=== PATIENT | female | born 1990 | race African-American/Black ===

== ENCOUNTER 2018-06-08 12:25 | Emergency (ER) | payer OTHER, SELFPAY ==
[2018-06-08 13:09] LABS: #Basophils 0.1 thou/uL (0.0-0.2); #Eosinphils 0.1 thou/uL (0.0-0.7); #Lymphocytes 2.3 thou/uL (1.20-3.40); #Monocytes 0.6 thou/uL (0.11-0.59); #Neutrophils 5.5 thou/uL (1.40-6.50); %Basophils 0.6 % (0.0-1.0); %Eosinophils 1.2 % (0.0-10.0); %Lymphocytes 27.2 % (21.0-51.0); %Monocytes 6.6 % (0.0-10.0); %Neutrophils 64.4 % (42.0-75.0); Hemoglobin 12.5 g/dL (12.0-16.0); Mean Corpuscular HGB CONC 34.7 g/dL (32.0-36.0); Mean Corpuscular Volume 77.9 fL (78.0-98.0); Mean Platelet Volume 8.8 fL (7.4-10.4); Platelet Count 219 thou/uL (130-400); RBC Distribution Width 11.7 % (11.5-14.5); Red Blood Cell (RBC) Count 4.64 mill/uL (4.20-5.40); White Blood Cell (WBC) Count 8.6 thou/uL (4.8-10.8)
[2018-06-08 14:57] LABS: Bilirubin Negative (Negative); Blood, Urine Negative (Negative); Clarity CLOUDY (Clear); Glucose, Urine (Dipstick) Negative (Negative); Leukocyte Small (Negative); Nitrite Negative (Negative); Protein, Urine (Dipstick) Negative (Neg-Trace); Specific Gravity, Urine 1.016 (1.002-1.036); Urobilinogen 0.2 mg/dL (0.2-1.0)
[2018-06-08 14:59] LABS: Bacteria/HPF Rare-Few HPF (None Seen); Hyaline Casts/LPF 4-6 HYALINE CAST LPF (0-3 Hyaline); Pathc Cast-AUWi Flag 1.74 (0-2.49)
[2018-06-08 15:14] LABS: RBC/HPF 0-3 HPF (0-3)
--- NOTE | 2018-06-08 16:06 | ULT ---
PELVIC/OB ULTRASOUND 06/08/18 COMPARISON: None. HISTORY: female with abdominal pain/cramping. TECHNIQUE: Multiplanar iverson scale and color doppler images were obtained in a transabdominal pelvic ultrasound. Spectral analysis of the doppler waveforms of the ovaries were performed. FINDINGS: There is a live intrauterine with a heart rate of 152 beats per minute. Average age of this fetus is 13 weeks, 4 days. The following measurements were taken and dates based on these measuremen ts are as follows: BPD 2.18 cm 13 weeks, 4 days HC 8.50 cm 13 weeks, 5 days AC 6.77 cm 13 weeks, 3 days FL 1.12 cm 13 weeks, 2 days The placenta is anterior in location without evidence of placenta previa. Amniotic fluid volume is august bjectively within normal limits. IMPRESSION: Single live intrauterine with estimated age of 13 weeks, 4 days. POS: [facility]
[2018-06-08 16:12] LABS: ALT (SGPT) 9 U/L (8-55); AST (SGOT) 15 U/L (5-34); Albumin 3.8 g/dL (3.5-5.0); Alkaline Phosphatase 69 U/L (40-150); Anion Gap 12 mmol/L (10-20); BUN (Urea Nitrogen) Less than 4 mg/dL (7.0-18.7); Bilirubin, Total 0.4 mg/dL (0.2-1.2); Calc. Creatinine Clearance 0 mL/min (70-130); Calcium 9.5 mg/dL (7.8-10.44); Carbon Dioxide 22 mmol/L (22-29); Chloride 105 mmol/L (98-107); Estimated GFR-MDRD Greater than 90; Globulin 3.1 g/dL (2.4-3.5); Glucose 72 mg/dL (70-105); Potassium 4.2 mmol/L (3.5-5.1); Protein, Total 6.9 g/dL (6.0-8.3); Sodium 135 mmol/L (136-145)
[2018-06-08 18:36] LABS: Bilirubin Negative (Negative); Blood, Urine Negative (Negative); Clarity CLEAR (Clear); Glucose, Urine (Dipstick) Negative (Negative); Leukocyte Trace (Negative); Nitrite Negative (Negative); Protein, Urine (Dipstick) Negative (Neg-Trace); Specific Gravity, Urine 1.004 (1.002-1.036); Urobilinogen 0.2 mg/dL (0.2-1.0)
[2018-06-08 18:38] LABS: Bacteria/HPF None Seen HPF (None Seen); Hyaline Casts/LPF 0-3 HYALINE CAST LPF (0-3 Hyaline); RBC/HPF None Seen HPF (0-3); Squamous Epithelial 0-3 HPF (0-3); WBC/HPF 0-3 HPF (0-3)
== END 2018-06-08 19:25 | disposition home or self-care (01) ==
LOC: ERS 12:25
DX: O99.89 Other specified diseases and conditions complicating pregnancy, childbirth and the puerperium (principal); R10.30 Lower abdominal pain, unspecified; Z3A.13 13 weeks gestation of pregnancy
CPT/HCPCS: 36415; 76815; 80053; 81003; 81015; 84702; 85025

== ENCOUNTER 2018-08-09 07:30 | Outpatient (CLI) | payer OTHER ==
--- NOTE | 2018-08-09 11:29 | ULT ---
COMPLETE OB ULTRASOUND GREATER THAN 14 WEEKS: HISTORY: A 28-year-old female with history of second trimester anatomy evaluation. FINDINGS: A single viable intrauterine fetus, noted in cephalic presentation. Placenta is anterior and fundal. heart rate 142 BPM. Amniotic fluid is within normal limits. Cervical length approximately 3 .2 cm. The visualized brain, four-chamber heart, three-vessel cord, stomach, bladder, kidneys, spine, and extremity regions appear unremarkable. BIOMETRY: BPD: 5.2 cm (21 weeks 6 days) HEAD CIRCUMFERENCE: 20.1 cm (22 weeks 2 days) ABDOMINAL CIRCUMFERENCE: 16.8 cm (21 weeks 6 days) FEMUR LENGTH: 3.8 cm (22 weeks 1 day) IMPRESSION: 1. Gestational age average 22 weeks 1 day. 2. Estimated date of delivery 12/12/2018. 3. Estimated weight 460 g. POS: [facility]
== END 2018-08-09 07:31 | disposition home or self-care (01) ==
LOC: BICULT 07:30 → EDSTATUS 08:00
PROVIDERS: ATTEND Family Medicine
DX: Z34.82 Encounter for supervision of other normal pregnancy, second trimester (principal); Z3A.22 22 weeks gestation of pregnancy
CPT/HCPCS: 76805

== ENCOUNTER 2018-11-04 23:56 | Day surgery (SDC) | payer OTHER ==
[2018-11-05 00:57] VITALS: BP 115/59; TEMP 98.9; BMI 26.7
--- NOTE | 2018-11-05 01:46 | PRG ---
DATE OF SERVICE: 11/05/2018 CHIEF COMPLAINT: Contractions. HISTORY OF PRESENT ILLNESS: Ms. Alonzo is a 28-year-old, G2, P1-0-0-1 with a history of a previous term vaginal delivery, who presents for contractions that started earlier this evening at home. She reports that she was having regular painful contractions for about 45 minutes and occurred approximately every 5-7 minutes. The patient denies any loss of fluid, any vaginal bleeding. Reports good movement. Denies any complications in her care and denies any other concerns with her . PAST MEDICAL HISTORY: Negative. PAST SURGICAL HISTORY: Negative. SOCIAL HISTORY: Negative. PREVIOUS OBSTETRICAL HISTORY: Prior term vaginal delivery. REVIEW OF SYSTEMS: Negative except as stated in HPI. PHYSICAL EXAMINATION: VITAL SIGNS: Blood pressure 115/59, heart rate 86, respirations 20, temperature 98.9. heart tones in the 130s with moderate variability, positive accelerations and no decelerations present. Tocometer with uterine irritability noted. No regular contractions noted. VAGINAL: Per RN, the cervix is 1 cm, 50% effaced, -2, and posterior. GENERAL: No acute distress. Alert and oriented, resting comfortably. CHEST: Nonlabored breathing. ABDOMEN: Soft, nontender. Uterus palpates soft. Active movement noted. No abdominal tenderness. No rebound. No guarding. SKIN: No rashes or lesions. MUSCULOSKELETAL: Normal range of motion in the upper and lower extremities. No clubbing, cyanosis, or edema noted. PSYCHIATRIC: Appropriate affect. The patient is alert and cooperative. ASSESSMENT AND PLAN: Ms. Alonzo is a 28-year-old, G2, P1-0-0-1 at 34 weeks and 4 days with uterine contractions that she notes prior to presentation, that she now reports have stopped. We discussed observation at the hospital versus at home with close monitoring. The patient agrees to discharge from the OB emergency department this evening with close monitoring at home. We discussed close observation for any return of regular painful contractions, bleeding, leakage of fluid or changes in movement or any other concerning findings. The patient's questions were answered and she was discharged home in good condition. Job ID: [id number]
== END 2018-11-05 01:13 | disposition home or self-care (01) ==
LOC: L&D/OP 23:56
PROVIDERS: ATTEND Family Medicine
DX: O47.03 False labor before 37 completed weeks of gestation, third trimester (principal); Z3A.34 34 weeks gestation of pregnancy
CPT/HCPCS: 99282

== ENCOUNTER 2018-11-15 10:56 | Emergency (ER) | payer OTHER | END 2018-11-15 12:10 | disposition home or self-care (01) | LOC: ERS 10:56 | DX: O9A.213 Injury, poisoning and certain other consequences of external causes complicating pregnancy, third trimester (principal); S16.1XXA Strain of muscle, fascia and tendon at neck level, initial encounter; Z3A.36 36 weeks gestation of pregnancy; V43.62XA Car passenger injured in collision with other type car in traffic accident, initial encounter | CPT/HCPCS: 99283 ==

== ENCOUNTER 2018-12-04 15:35 | Inpatient (IN) | payer OTHER ==
[2018-12-04 22:16] VITALS: BMI 28.6
[2018-12-04] MEDS ORDERED: Ibuprofen 800 MG TAB PO PRN (22:50)
[2018-12-04] MEDS ORDERED: Ondansetron PF 4 MG/2 ML Vial IVP PRN (22:50)
[2018-12-04] MEDS ORDERED: HYDROcodone/Acetaminophen 5/325 mg Tablet PO PRN (22:50)
[2018-12-04] MEDS ORDERED: Misoprostol 200 MCG TAB PR PRN (22:50)
[2018-12-04] MEDS ORDERED: Lidocaine 1% (PF) 30 ML VIAL SC PRN (22:50)
[2018-12-04] MEDS ORDERED: Carboprost 250 MCG/ML AMP IM PRN (22:50)
[2018-12-04] MEDS ORDERED: Methylergonovine 0.2 MG/ML VIAL IM PRN (22:50)
[2018-12-04] MEDS ORDERED: Diphenoxylate HCl/Atropine Tablet PO PRN (22:50)
[2018-12-04] MEDS ORDERED: NS / Oxytocin 40 units/1000ml 1,000 ML IV PRN (22:50)
[2018-12-04] MEDS ORDERED: Butorphanol Tartrate 1 MG/ML VIAL SLOW IVP PRN (22:50)
[2018-12-04 23:00] LABS: Hemoglobin 10.4 g/dL (12.0-16.0); Mean Corpuscular HGB CONC 33.9 g/dL (32.0-36.0); Mean Corpuscular Hemoglobin 25.6 pg (27.0-31.0); Mean Corpuscular Volume 75.4 fL (78.0-98.0); Mean Platelet Volume 10.7 fL (7.4-10.4); Platelet Count 187 thou/uL (130-400); RBC Distribution Width 13.2 % (11.5-14.5); Red Blood Cell (RBC) Count 4.05 mill/uL (4.20-5.40)
[2018-12-04] MEDS: Lactated Ringer's 1,000 ML IV SCH (23:00)
[2018-12-04] MEDS ORDERED: NS w/ Oxytocin 10 units 500 ML IV SCH ×2 (23:00)
[2018-12-04] MEDS ORDERED: Penicillin G Potassium 5 MILL.UNITS in Sodium Chloride 0.9% 100 ML IVPB SCH (23:00)
[2018-12-04] MEDS: Misoprostol 100 MCG TAB PO SCH (23:15)
[2018-12-04 23:41] LABS: Syphilis Antibody Nonreactive (Nonreactive); Syphilis Antibody Index 0.04 S/CO (<1.00 Non-Reactive)
[2018-12-05 00:27] LABS: Hep B Surf Ag Non-Reactive S/CO (NonReactive)
[2018-12-05] MEDS ORDERED: Fentanyl 4 mcg/Bup 0.1% Cadd 100 ML ONE ×2 (03:24→10:43)
[2018-12-05] MEDS ORDERED: ePHEDrine/0.9% NaCl/PF SYRINGE 50 mg/10 ml SLOW IVP PRN (03:41)
[2018-12-05] MEDS ORDERED: Promethazine HCl 25 MG/ML VIAL IM PRN (03:41)
[2018-12-05] MEDS ORDERED: Hydrocerin (Eucerin) Cream 120 gm Jar TOP PRN (03:41)
[2018-12-05] MEDS ORDERED: Ondansetron PF 4 MG/2 ML Vial IVP PRN ×2 (03:41→17:39)
[2018-12-05] MEDS ORDERED: diphenhydrAMINE 50 MG/ML VIAL IVP PRN (03:41)
[2018-12-05] MEDS ORDERED: Acetaminophen 325 MG TAB PO PRN (03:41)
[2018-12-05] MEDS ORDERED: Naloxone HCl 0.4 mg/ml Vial IVP PRN ×2 (03:41)
[2018-12-05] MEDS ORDERED: Lactated Ringer's 500 ML IV PRN (03:41)
[2018-12-05] MEDS ORDERED: Lidocaine 1.5%/Epinephrine 1:200,000 5 ML AMPUL IJ ONE (03:44)
[2018-12-05] MEDS ORDERED: Fentanyl 4 mcg/Bupivacaine 0.1% Cassette 100 ML EPIDURAL SCH (03:45)
[2018-12-05] MEDS ORDERED: Communication Order-Pharmacy FS SCH (03:45)
[2018-12-05] MEDS: Penicillin G 2.5 MILL.units 2.5 MILL.UNITS in Premix Bag 1 BAG IVPB SCH ×4 (07:26→18:24)
[2018-12-05] MEDS: Misoprostol 100 MCG TAB PO SCH (07:26)
[2018-12-05] MEDS ORDERED: Bicitra 30 ML UDCUP ONE (13:59)
[2018-12-05] MEDS ORDERED: HYDROcodone/Acetaminophen 5/325 mg Tablet PO PRN ×2 (17:39)
[2018-12-05] MEDS ORDERED: NS / Oxytocin 40 units/1000ml 1,000 ML IV SCH (17:39)
[2018-12-05] MEDS ORDERED: Preparation H Ointment 28 GM TUBE PR PRN (17:39)
[2018-12-05] MEDS ORDERED: Milk Of Magnesia 30 ML UDCUP PO PRN (17:39)
[2018-12-05] MEDS ORDERED: Lanolin Ointment 7 GM TUBE TOP PRN (17:39)
[2018-12-05] MEDS ORDERED: diphenhydrAMINE 25 MG CAP PO PRN (17:39)
[2018-12-05] MEDS ORDERED: Benzocaine/Menthol 20-0.5% 60 ML CAN TOP PRN (17:39)
[2018-12-05] MEDS ORDERED: Bisacodyl 10 MG SUPP PR PRN (17:39)
[2018-12-05] MEDS ORDERED: Ibuprofen 800 MG TAB PO SCH (18:00)
[2018-12-05] MEDS ORDERED: Ferrous Sulfate 325 MG TAB PO SCH (18:00)
[2018-12-05] MEDS: Lactated Ringer's 1,000 ML IV SCH ×2 (18:23→18:24)
[2018-12-05] MEDS: Docusate Calcium (SURFAK) 240 MG CAP PO SCH (21:25)
[2018-12-06] MEDS: Ibuprofen 800 MG TAB PO SCH ×2 (06:09→14:00)
[2018-12-06 06:54] LABS: Mean Corpuscular HGB CONC 32.8 g/dL (32.0-36.0); Mean Corpuscular Hemoglobin 25.5 pg (27.0-31.0); Mean Corpuscular Volume 77.9 fL (78.0-98.0); Platelet Count 168 thou/uL (130-400); RBC Distribution Width 13.8 % (11.5-14.5); White Blood Cell (WBC) Count 14.6 thou/uL (4.8-10.8)
[2018-12-06] MEDS ORDERED: Ferrous Sulfate 325 MG TAB PO SCH (08:00)
[2018-12-06 08:20] VITALS: BP 113/59; TEMP 97.6
[2018-12-06] MEDS: Docusate Calcium (SURFAK) 240 MG CAP PO SCH (08:48)
[2018-12-06] MEDS ORDERED: Prenatal Vitamin 1 TAB PO SCH (09:00)
== END 2018-12-06 15:04 | disposition home or self-care (01) | DRG 807 ==
LOC: L&D 20:59 → 3SW 12-05 16:01 → EDSTATUS 12-13 15:34
PROVIDERS: ADMIT Family Medicine; ATTEND Family Medicine
PROC: 10907ZC Drainage of Amniotic Fluid, Therapeutic from Products of Conception, Via Natural or Artificial Opening (ICD-10-PCS; principal; 2018-12-04)
PROC: 10E0XZZ Delivery of Products of Conception, External Approach (ICD-10-PCS; 2018-12-04)
DX: O99.824 Streptococcus B carrier state complicating childbirth (principal); Z37.0 Single live birth; Z3A.39 39 weeks gestation of pregnancy
CPT/HCPCS: 36415; 51702; 85027; 86780; 86850; 86900; 86901; 87340; J2405; J2540; J3490; J7050

== ENCOUNTER 2019-12-29 16:37 | Emergency (ER) | payer OTHER | END 2019-12-29 17:56 | disposition home or self-care (01) | LOC: ERS 16:37 | DX: B34.9 Viral infection, unspecified (principal) | CPT/HCPCS: 87081; 87430; 87804; 99283; U0001 ==